=== PATIENT | female | born 1985 | race African-American/Black ===

== ENCOUNTER 2018-01-11 15:24 | Observation (INO) | payer SELFPAY ==
[~2018-01-11] VITALS: Ht 165.1 cm; Wt 112.5 kg
[2018-01-11] MEDS ORDERED: [UNRECOGNIZED DRUG - REMARK] IV SCH ×2 (16:30)
[2018-01-11] MEDS ORDERED: METRONIDAZOLE 500MG TABLET PO NR (16:30)
[2018-01-11 17:04] LABS: CLARITY URINE CLEAR (CLEAR); COLOR URINE YELLOW (YELLOW); KETONES URINE NEGATIVE (NEGATIVE); LEUKOCYTE ESTERASE URINE NEGATIVE (NEGATIVE); NITRITE URINE NEGATIVE (NEGATIVE); OCCULT BLOOD URINE 1+ (NEGATIVE); PH URINE 6.5 (4.5-8.0); PROTEIN URINE NEGATIVE (NEGATIVE); SPECIFIC GRAVITY URINE 1.012 (1.005-1.030)
== END 2018-01-11 20:00 | disposition home or self-care (01) ==
LOC: L&D 15:24
PROVIDERS: ADMIT Specialist; ATTEND Specialist
DX: O62.9 Abnormality of forces of labor, unspecified (principal); Z3A.20 20 weeks gestation of pregnancy
CPT/HCPCS: 81003; 96365; 96366; 99281; G0378; 96360; J3490

== ENCOUNTER → 2019-10-01 | Emergency (ER) | payer MEDICAID ==
[~2019-10-01] VITALS: Ht 165.1 cm; Wt 80.0 kg
[~2019-10-01] MED LIST: MORPHINE SULFATE 2 MG/ML CPJ (NOT FOR IM USE) IV ONE; ONDANSETRON HCL 4MG/2ML INJ IV ONE; SODIUM CHLORIDE 0.9% 1,000 ML IV ONE
[2019-10-01 10:57] LABS: BASOPHILS % 0.2 % (0.0-2.0); EOSINOPHILS % 1.5 % (0.0-5.0); HEMATOCRIT. 37.6 % (36.0-48.0); HEMOGLOBIN. 12.8 g/dL (12.0-16.0); LYMPHOCYTES % 17.3 % (20.0-50.0); MEAN CORPUSCULAR HEMOGLOBIN 30.9 pg (28.0-32.0); MEAN CORPUSCULAR VOLUME 90.7 fL (81.0-99.0); MEAN PLATELET VOLUME 7.5 fl (7.4-10.4); MONOCYTES % 4.8 % (2.0-8.0); NEUTROPHILS % 76.2 % (40.0-76.0); PLATELET 199 x1000/uL (130-400); RED BLOOD CELL COUNT 4.14 mill/uL (4.2-5.4); RED CELL DISTRIBUTION WIDTH 13.6 % (11.6-14.6)
[2019-10-01 11:03] LABS: CHLORIDE 110 mEq/L (98-107)
[2019-10-01 11:04] LABS: PROTHROMBIN TIME 9.8 sec (9.6-11.0)
[2019-10-01 11:29] LABS: B-HCG QUANTITATIVE 5365 mIU/mL (<3)
[2019-10-01 13:10] LABS: BASOPHILS % 0.2 % (0.0-2.0); EOSINOPHILS % 1.5 % (0.0-5.0); HEMATOCRIT. 29.8 % (36.0-48.0); HEMOGLOBIN. 10.2 g/dL (12.0-16.0); LYMPHOCYTES % 15.9 % (20.0-50.0); MEAN CORPUSCULAR VOLUME 90.7 fL (81.0-99.0); MEAN PLATELET VOLUME 7.1 fl (7.4-10.4); MONOCYTES % 4.6 % (2.0-8.0); NEUTROPHILS % 77.8 % (40.0-76.0); PLATELET 179 x1000/uL (130-400); RED BLOOD CELL COUNT 3.28 mill/uL (4.2-5.4); RED CELL DISTRIBUTION WIDTH 13.4 % (11.6-14.6)
[2019-10-01 14:20] VITALS: BP 131/81
== END ==
LOC: ER 09:58
DX: O03.9 Complete or unspecified spontaneous abortion without complication (principal); Z3A.10 10 weeks gestation of pregnancy
CPT/HCPCS: 36415; 76801; 80053; 84702; 85025; 85610; 86850; 86900; 86901; 88305; 96374; 96375; 99284; J2270; J2405; J7030; Z7610

== ENCOUNTER 2019-10-09 15:12 | Inpatient (IN) | payer MEDICAID ==
[~2019-10-09] VITALS: Ht 165.1 cm; Wt 108.9 kg
[2019-10-09 16:43] LABS: BASOPHILS % 0.5 % (0.0-2.0); EOSINOPHILS % 1.2 % (0.0-5.0); HEMATOCRIT. 21.8 % (36.0-48.0); HEMOGLOBIN. 7.3 g/dL (12.0-16.0); LYMPHOCYTES % 23.5 % (20.0-50.0); MEAN CORPUSCULAR HEMOGLOBIN 29.5 pg (28.0-32.0); MEAN CORPUSCULAR VOLUME 88.7 fL (81.0-99.0); MEAN PLATELET VOLUME 6.6 fl (7.4-10.4); MONOCYTES % 6.4 % (2.0-8.0); NEUTROPHILS % 68.4 % (40.0-76.0); PLATELET 308 x1000/uL (130-400); RED BLOOD CELL COUNT 2.46 mill/uL (4.2-5.4); RED CELL DISTRIBUTION WIDTH 13.4 % (11.6-14.6)
[2019-10-09 16:46] LABS: CHLORIDE 107 mEq/L (98-107)
[2019-10-09 16:51] LABS: ETHANOL BLOOD < 10 mg/dL
[2019-10-09 16:58] LABS: B-HCG QUANTITATIVE 96 mIU/mL (<3)
[2019-10-09] MEDS ORDERED: MORPHINE SULFATE 4 MG/ML CPJ (NOT FOR IM USE) IV ONE (18:15)
[2019-10-09] MEDS ORDERED: ONDANSETRON HCL 4MG/2ML INJ IV ONE (18:15)
[2019-10-09 18:59] LABS: CLARITY URINE CLOUDY (CLEAR); COLOR URINE YELLOW (YELLOW); KETONES URINE NEGATIVE (NEGATIVE); LEUKOCYTE ESTERASE URINE 3+ (NEGATIVE); NITRITE URINE NEGATIVE (NEGATIVE); OCCULT BLOOD URINE 3+ (NEGATIVE); PROTEIN URINE TRACE (NEGATIVE); SPECIFIC GRAVITY URINE 1.032 (1.005-1.030); UROBILINOGEN URINE 0.2 E.U./dL (0.2-1.0)
[2019-10-09 19:19] LABS: *AMPHETAMINES SCREEN URINE NEGATIVE (NEGATIVE); *BARBITURATES SCREEN URINE NEGATIVE (NEGATIVE); *BENZODIAZEPINES SCREEN URINE NEGATIVE (NEGATIVE)
[2019-10-09 19:20] LABS: *COCAINE SCREEN URINE NEGATIVE (NEGATIVE); METHADONE URINE SCREEN NEGATIVE (NEGATIVE); OPIATES URINE SCREEN NEGATIVE (NEGATIVE); PHENCYCLIDINE URINE SCREEN NEGATIVE (NEGATIVE)
[2019-10-09 19:22] LABS: CANNABINOID URINE SCREEN PRESUMTIVE POSITIVE (NEGATIVE)
[2019-10-09 21:00] VITALS: BP 156/86
[2019-10-09] MEDS ORDERED: MORPHINE SULFATE 2 MG/ML CPJ (NOT FOR IM USE) IV PRN (22:15)
[2019-10-09] MEDS ORDERED: ONDANSETRON HCL 4MG/2ML INJ IV PRN (22:15)
[2019-10-09] MEDS ORDERED: IOHEXOL-300 100 ML BOTTLE ONE (23:08)
[2019-10-09] MEDS ORDERED: IOHEXOL-350 100 ML BOTTLE ONE (23:08)
[2019-10-10] VITALS (8 sets, daily range): BP systolic 116–140; BP diastolic 57–87
[2019-10-10] MEDS: ACETAMINOPHEN 325MG TABLET PO PRN ×2 (02:38→12:16)
[2019-10-10 06:35] LABS: BASOPHILS % 0.2 % (0.0-2.0); EOSINOPHILS % 1.4 % (0.0-5.0); LYMPHOCYTES % 28.6 % (20.0-50.0); MEAN CORPUSCULAR HEMOGLOBIN 29.8 pg (28.0-32.0); MEAN CORPUSCULAR VOLUME 88.4 fL (81.0-99.0); MEAN PLATELET VOLUME 6.5 fl (7.4-10.4); NEUTROPHILS % 61.8 % (40.0-76.0); PLATELET 269 x1000/uL (130-400); RED BLOOD CELL COUNT 2.29 mill/uL (4.2-5.4); RED CELL DISTRIBUTION WIDTH 13.4 % (11.6-14.6)
[2019-10-10 07:20] LABS: CHLORIDE 107 mEq/L (98-107)
[2019-10-10 08:02] LABS: HEMATOCRIT. 20.2 % (36.0-48.0); HEMOGLOBIN. 6.8 g/dL (12.0-16.0)
[2019-10-10] MEDS ORDERED: INFLUENZA VIRUS VACCINE(AFLURIA) 0.5ML SYR IM ONE (10:00)
[2019-10-10 11:23] LABS: HCG SCREEN POSITIVE
[2019-10-10 11:25] LABS: TOTAL IRON BINDING CAPACITY 382 ug/dL (250-450)
[2019-10-10 11:37] LABS: FOLIC ACID (FOLATE) SERUM 10.8 ng/mL (>5.38)
[2019-10-10] MEDS: FERROUS SULFATE 325MG TABLET PO SCH ×2 (12:35→16:41)
[2019-10-10] MEDS ORDERED: CYANOCOBALAMIN 1000MCG/ML VIAL IM SCH (13:00)
[2019-10-10] MEDS ORDERED: CAFFEINE 200MG TABLET PO PRN (14:00)
== END 2019-10-10 17:21 | disposition left against medical advice (07) | DRG 54 ==
LOC: ER 15:12 → 5WST 18:10 → EDBEDREQ 18:14 → ENRESERV 19:50 → CANRESERV 19:52 → ENRESERV 19:52
PROVIDERS: ADMIT Family Medicine; ATTEND Family Medicine
PROC: 30233N1 Transfusion of Nonautologous Red Blood Cells into Peripheral Vein, Percutaneous Approach (ICD-10-PCS; principal; 2019-10-09)
DX: R51 Headache (principal); K92.2 Gastrointestinal hemorrhage, unspecified; D64.9 Anemia, unspecified; Z59.0 Homelessness; H54.7 Unspecified visual loss
CPT/HCPCS: 36415; 70496; 70498; 71045; 80048; 80053; 80305; 80320; 81003; 82607; 82746; 83540; 83550; 83735; 84484; 84702; 84703; 85025; 86850; 86900; 86920; 87077; 87186; 90686; 93005; 99285; J2270; J2405; J3420; J7040; P9016; Q9967; G0480

== ENCOUNTER 2019-10-11 21:58 | Emergency (ER) | payer MEDICAID ==
[~2019-10-11] VITALS: Ht 165.1 cm; Wt 126.0 kg
[2019-10-11 22:27] VITALS: BP 125/80
== END 2019-10-12 10:35 | disposition home or self-care (01) ==
LOC: ER 21:58
DX: R42 Dizziness and giddiness (principal); Z53.21 Procedure and treatment not carried out due to patient leaving prior to being seen by health care provider